=== PATIENT | female | born 1995 | race Caucasian/White ===

== ENCOUNTER 2022-03-29 12:17 | Emergency (ER) | payer BC, SELFPAY ==
--- NOTE | ~2022-03-29 | XR_ITS ---
EXAMINATION: XR shoulder RT min 2V DATE: 03/29/2022 12:54 INDICATION: Right shoulder injury with pain with movement TECHNIQUE: AP internally and externally rotated, AP oblique externally rotated and transscapular Y vi ews of the right shoulder were obtained. COMPARISON: None FINDINGS: Type III acromioclavicular joint separation with cephalad dislocation of the lateral head of the clav icle, the inferior margin which lies 8 mm cephalad to the superior margin of the acromion and with wi dening of the coracoclavicular distance which measures approximately 2 cm . No fracture. Glenohumeral joint is normal. Soft tissues are unremarkable. Visualized portion of the lungs are clear. Heart siz e is normal. IMPRESSION: Type III acromioclavicular joint separation. No fracture. Reviewed, dictated and finalized at location A. [employer]
[2022-03-29 12:30] VITALS: BP 152/83; PULSE 82; RESP 16; TEMP 36.9; O2SAT 99
--- NOTE | 2022-03-29 13:40 | ED.UPPEXIN ---
HPI - Extremity Injury (Upper) General Chief Complaint: Extremity Injury, Upper Stated Complaint: shoulder disclocation Time Seen by Provider: 03/29/22 12:49 Source: patient and family Mode of arrival: ambulatory Limitations: no limitations History of Present Illness HPI narrative: Patient came to the emergency room by private car with right shoulder deformity. Patient stated she was playing softball when somebody ran into her and fell and landed on her right shoulder. Deformity noted, denies hitting head or any LOC Related Data Allergies Allergy/AdvReac Type Severity Reaction Status Date / Time No Known Allergies Allergy Unverified 03/21/12 17:07 Review of Systems Review of Systems: All systems reviewed & are unremarkable except as noted in HPI and below PMFSH Family History Family History (Updated 08/31/18 @ 14:30 by DOCTOR UNKNOWN) Grandparent Hypertension Family history of arthritis Social History Social History Smoking status: Never smoker Alcohol intake: current Exam Narrative: General appearance: Well-developed, well-nourished Skin: Normal color Head: Normocephalic, nontraumatic Eyes: Clear conjunctiva ENT: Oropharynx normal, ears normal, nose normal Neck: Supple, nontender Chest and respiratory: Airway patent, no respiratory distress, no accessory muscle use Heart: Regular rate/rhythm Abdomen: Soft, nontender, no organomegaly, quiet bowel sounds Vascular: Normal peripheral pulses, normal capillary refill. Musculoskeletal: Right shoulder deformity, diffusely tender, no bruises. Neurologic: Alert and oriented ?3, O [employer] is normal as tested, no gross motor deficit Course Vital Signs Vital signs: Vital Signs Temperature 36.9 C 03/29/22 12:30 Pulse Rate 82 03/29/22 12:30 Respiratory Rate 16 03/29/22 12:30 Blood Pressure 152/83 H 03/29/22 12:30 Pulse Oximetry 99 03/29/22 12:30 Oxygen Delivery Room Air 03/29/22 12:30 Temperature 36.9 C 03/29/22 12:30 Pulse Rate 82 03/29/22 12:30 Respiratory Rate 16 03/29/22 12:30 Blood Pressure 152/83 H 03/29/22 12:30 Pulse Oximetry 99 03/29/22 12:30 Oxygen Delivery Room Air 03/29/22 12:30 MDM - Extremity Injury (Upper) Imaging Data Radiologist's impression: Impressions Shoulder X-Ray 03/29/22 13:20 IMPRESSION: Type III acromioclavicular joint separation. No fracture. Critical Care Time Critical Care Time Critical Care Time: Yes Total Critical Care Time: 10 Discharge Plan Discharge Clinical Impression: Acromioclavicular joint separation, type 3 Patient Disposition: Home, Self-Care Condition: Stable Instructions: Antibiotic Form, Acromioclavicular Separation (ED) Additional Instructions: Return if symptoms are worsening , call Dr. Freed for appointment, take Tylenol, ibuprofen as needed for pain, sling, call orthopedic for follow-up Nonsurgical management for most cases Rest Ice pack 5 to 10 minutes every 2 hours for the first 48 hours Arm sling: Take off for painless activities Physical rehabilitation: Early active motion and exercise Most return to normal activity in 6 weeks but some may take 3 to 4 months. Surgical reconstruction may be indicated in some cases, especially for throwing athletes or laborers Follow-up/Referrals: Tor Bustamante MD [Physician] - Richard Drake MD [Physician] - 03/31/22
--- NOTE | 2022-03-29 14:20 | PC.NURSE ---
Sling placed to right arm
== END 2022-03-29 14:20 | disposition home or self-care (01) ==
PROVIDERS: Emergency Provider Emergency Medicine; PCP Family Medicine Sports Medicine
DX: S43.101A Unspecified dislocation of right acromioclavicular joint, initial encounter (principal); W03.XXXA Other fall on same level due to collision with another person, initial encounter; Y93.64 Activity, baseball
CPT/HCPCS: 73030; 99283; A4565